=== PATIENT | male | born 1995 | race American Indian/Alaskan Native ===

== ENCOUNTER 2018-11-10 15:09 | Emergency (ER) | payer MEDICAID ==
[2018-11-10 15:20] VITALS: RESP 18
--- NOTE | 2018-11-10 15:46 | ED PDOC ---
Arrival/HPI - General Chief Complaint: Finger,Hand,&Wrist Time Seen by Provider: 11/10/18 15:18 Historian: Patient - History of Present Illness Narrative History of Present Illness (Text): 11/10/18 15:44 A 23 year old male, with no significant past medical history, presents to the emergency department for a complaint of left hand pain. The patient reports that he punched a dry wall last night and injured his left hand. He notes that he has done this in the past with his right hand. When asked why he punched a wall, patient remained silent. Patient denies fevers, chills, headache, dizziness, chest pain, shortness of breath, dyspnea on exertion, cough, abdominal pain, nausea, vomiting, diarrhea, back pain, neck pain, urinary/bowel changes, or any other complaint. Time/Duration: Other (Last night) Symptom Onset: Sudden Symptom Course: Unchanged Activities at Onset: Rest, Light Context: Home Past Medical History - Provider Review Nursing Documentation Reviewed: Yes - Infectious Disease Hx of Infectious Diseases: None - Tetanus Immunization Tetanus Immunization: Unknown - Cardiac Hx Peripheral Vascular Disease: No - Pulmonary Other/Comment: Smoker. marijuana use - Neurological Hx Transient Ischemic Attacks (TIA): No - HEENT Hx HEENT Disorder: No - Renal Hx Renal Disorder: No - Endocrine/Metabolic Hx Endocrine Disorders: No - Hematological/Oncological Hx Blood Transfusions: No Hx Blood Transfusion Reaction: No - Integumentary Hx Dermatological Disorder: No - Musculoskeletal/Rheumatological Hx Musculoskeletal Disorders: No - Gastrointestinal Hx Gastrointestinal Disorders: Yes Other/Comment: appendicitis - Genitourinary/Gynecological Hx Genitourinary Disorders: No - Psychiatric Hx Emotional Abuse: No Hx Physical Abuse: No Hx Substance Use: Yes (marijuana) - Surgical History Hx Appendectomy: Yes - Anesthesia Hx Anesthesia Reactions: No Hx Malignant Hyperthermia: No - Suicidal Assessment Feels Threatened In Home Enviroment: No Family/Social History - Physician Review Nursing Documentation Reviewed: Yes Family/Social History: No Known Family HX Smoking Status: Current Some Days Smoker Hx Alcohol Use: No Hx Substance Use: Yes (marijuana) Allergies/Home Meds Allergies/Adverse Reactions: Allergies No Known Allergies Allergy (Verified 11/10/18 15:20) Review of Systems - Physician Review All systems were reviewed & negative as marked: Yes - Review of Systems Constitutional: absent: Fevers Respiratory: absent: SOB, Cough Cardiovascular: absent: Chest Pain, LUCERO Gastrointestinal: absent: Abdominal Pain, Stool Changes, Diarrhea, Nausea, Vomiting Genitourinary Male: absent: Urinary Output Changes Musculoskeletal: Other (Left hand pain). absent: Back Pain, Neck Pain Neurological: absent: Headache, Dizziness Physical Exam - Physical Exam Narrative Physical Exam (Text): 11/10/18 15:47 Gen: VS reviewed, alert, well developed, well nourished, nontoxic, mild distress. ENT: normal pharynx. Eye: EOMI, PERRL. Neck: no JVD, supple, no adenopathy. CV: regular rate, regular rhythm, no rubs, no murmur, no gallops, S1, S2, pulses equal and strong. Pulm: no distress, clear to auscultation, no wheeze, no rhonchi, breath sounds equal, no rales. Abd: soft, nontender, no guarding, no rebound, no rigidity, normal bowel sounds. Ext: no edema. Tenderness and swelling to the lateral aspect of the left hand. Neurovascularly intact. Skin: good color, no rash, no cyanosis. Psych: responds appropriately to questions, normal affect. Neuro: oriented x 3, CN2-12 intact grossly, motor intact, sensation intact. Vital Signs Reviewed: Yes Vital Signs Temp Pulse Resp Pulse Ox 11/10/18 15:18 98 F 76 18 98 Temperature: Afebrile Blood Pressure: Normal Pulse: Regular Respiratory Rate: Normal Appearance: Positive for: Well-Appearing, Non-Toxic, Comfortable Pain Distress: None Mental Status: Positive for: Alert and Oriented X 3 Medical Decision Making ED Course and Treatment: 11/10/18 15:47 Impression: A 23 year old male presents to the emergency department with a complaint of left hand pain s/p punching a wall last night. Plan: -- Left hand X- Ray -- Reassess and disposition Prior Visits: Notes and results from previous visits were reviewed. Patient was last seen in the emergency department on Progress Notes: 11/10/18 15:48 11/10/18 16:53 patient presents for delayed presentation of left hand injury after punching a wall. fiberglass ulnar gutter splint was placed by myself. patient and mother at bedside were explained the extreme importance of following up with a hand specialist for likely surgery. they appeared to understand and will maek an appointment and to return for any new or worsening symptoms. - RAD Interpretation Narrative RAD Interpretations (Text): PROCEDURE: Left Hand Radiographs Date Signed: 11/10/18 726 Signed By: Chika Ashley MD IMPRESSION: Acute angulated and displaced fracture deformity of the 5th metacarpal with associated soft tissue swelling. Radiology Orders: 11/10/18 15:36 HAND LEFT 3 VIEWS ROUTINE [RAD] Stat Procedures - Time-Out Type of Procedure: fiberglass splint Site of Procedure: left ulnar gutter Correct Patient (with visual ID + MR# on ID Band): Yes Correct Procedure: Yes RN Name: Tera - Splinting Location: left ulnar gutter Hand-Made Type: fiberglass Pre-Proc Neuro Vasc Exam: normal Post-Proc Neuro Vasc Exam: normal Progress: placed by myself. - Scribe Statement The provider has reviewed the documentation as recorded by the Scribe Patria Jefferson Provider Scribe Attestation: All medical record entries made by the Scribe were at my direction and personally dictated by me. I have reviewed the chart and agree that the record accurately reflects my personal performance of the history, physical exam, medical decision making, and the department course for this patient. I have also personally directed, reviewed, and agree with the discharge instructions and disposition. Disposition/Present on Arrival - Present on Arrival Any Indicators Present on Arrival: No History of DVT/PE: No History of Uncontrolled Diabetes: No Urinary Catheter: No History of Decub. Ulcer: No History Surgical Site Infection Following: None - Disposition Have Diagnosis and Disposition been Completed?: Yes Diagnosis: Boxer's fracture Disposition: HOME/ ROUTINE Disposition Time: 16:47 Patient Plan: Discharge Patient Problems: Current Active Problems Problem Status Onset Boxer's fracture Acute Condition: STABLE Discharge Instructions (ExitCare): Boxer's Fracture Additional Instructions: You must follow up with the hand specialist. Call tomorrow to make an appointment. [address] [address] GET DIRECTIONS CALL THIS NUMBER AND ASK TO MAKE AN APPOINTMENT AT THE HAND CLINIC. IT IS BEST THAT YOU TRY TO GET AN APPOINTMENT THIS WEEK. Prescriptions: Ibuprofen [Motrin Tab] 600 mg PO QID #30 tab Referrals: Gómez Rizo MD [Primary Care Provider] - Follow up with primary Forms: [facility] (Lao), WORK NOTE
--- NOTE | 2018-11-10 16:01 | RAD ---
PROCEDURE: Left Hand Radiographs. HISTORY: injury, focus 4th or 5th carpal COMPARISON: None available. FINDINGS: BONES: Acute angulated and displaced fracture deformity of the 5th metacarpal. The remainder the visualized osseous structures appear intact. JOINTS: No dislocation. SOFT TISSUES: Soft tissue swelling. No evidence of radiopaque foreign body. OTHER FINDINGS: None. IMPRESSION: Acute angulated and displaced fracture deformity of the 5th metacarpal with associated soft tissue swelling.
[2018-11-10 16:58] VITALS: BP 123/82; PULSE 72; TEMP 98.3; O2SAT 99
== END 2018-11-10 16:56 | disposition home or self-care (01) ==
LOC: ED 15:09
DX: S62.307A Unspecified fracture of fifth metacarpal bone, left hand, initial encounter for closed fracture (principal); W22.01XA Walked into wall, initial encounter